=== PATIENT | male | born 1985 | race African-American/Black ===

== ENCOUNTER 2017-12-24 19:13 | Inpatient (IN) | payer OTHER ==
[~2017-12-24] VITALS: Ht 177.8 cm; Wt 89.5 kg
[2017-12-24 20:24] LABS: Basophils # (auto) 0 uL; Basophils % (auto) 0.2 % (0.0-2.0); Eosinophils # (auto) 0.2 uL; Eosinophils % (auto) 2.6 % (0.0-7.0); Hematocrit 40.6 % (41.0-53.0); Hemoglobin 13.2 g/dL (13.5-17.5); Lymphocytes # (auto) 2.9 uL; Lymphocytes % (auto) 47.9 % (10.0-50.0); Mean Corpuscular Hemoglobin 27.6 pg (28.0-32.0); Mean Corpuscular Hgb Conc. 32.4 g/dL (32.0-36.0); Mean Corpuscular Volume 85.2 fL (80.0-100.0); Monocytes # (auto) 0.4 uL; Monocytes % (auto) 6.2 % (0.0-12.0); Neutrophils # (auto) 2.6 uL; Neutrophils % (auto) 43.1 % (37.0-80.0); Nucleated Red Blood Cells % 0.1 %; Platelet Count (auto) 230 10^3/uL (140-450); Red Blood Cells 4.77 10^6/uL (4.5-5.90); Red Cell Distribution Width 15.4 % (11.8-14.3); White Blood Cell 6.1 10^3/uL (4.4-10.8)
[2017-12-24 20:34] LABS: Albumin 4.1 g/dL (3.4-5.0); Bilirubin, Total 0.5 mg/dL (0.2-1.0); Calcium 9.2 mg/dL (8.5-10.1)
[2017-12-24 20:54] LABS: INR 1.07 (0.9-1.15); Partial Thromboplastin Time 36.9 sec (23.78-33.04); Prothrombin Time 11.4 sec (9.27-12.13)
[2017-12-24 22:52] LABS: Urine Bacteria FEW /hpf (None Seen); Urine Blood Negative /uL (Negative); Urine Mucus FEW (None Seen); Urine Specific Gravity 1.023 (1.001-1.035); Urine WBC 4 /hpf (0 - 3)
[2017-12-25] MEDS ORDERED: ENOXAPARIN SOD 80 MG/0.8ML SYRINGE SC ONE (00:30)
[2017-12-25] MEDS ORDERED: MORPHINE SULFATE 8mg/ml INJ SDV IV PRN (04:00)
[2017-12-25] MEDS ORDERED: ONDANSETRON HCL 4 MG/2 ML VIAL IV PRN (04:00)
[2017-12-25] MEDS ORDERED: DIAZEPAM 5 MG TAB PO PRN (04:00)
[2017-12-25] MEDS ORDERED: ACETAMINOPHEN 500 MG TAB PO PRN (04:00)
[2017-12-25] MEDS ORDERED: cefTRIAXone 1GM/10ml IVPUSH 10 ML IV ONE (04:00)
[2017-12-25 05:00] VITALS: BP 141/90
[2017-12-25 05:02] VITALS: BP 141/90
[2017-12-25 05:26] LABS: Basophils # (auto) 0 uL; Basophils % (auto) 0.8 % (0.0-2.0); Eosinophils # (auto) 0.2 uL; Hematocrit 38.3 % (41.0-53.0); Hemoglobin 12.6 g/dL (13.5-17.5); Lymphocytes # (auto) 3.3 uL; Lymphocytes % (auto) 53.8 % (10.0-50.0); Mean Corpuscular Hemoglobin 28.1 pg (28.0-32.0); Mean Corpuscular Hgb Conc. 32.9 g/dL (32.0-36.0); Mean Corpuscular Volume 85.2 fL (80.0-100.0); Monocytes # (auto) 0.5 uL; Monocytes % (auto) 7.4 % (0.0-12.0); Neutrophils # (auto) 2.1 uL; Nucleated Red Blood Cells % 0.1 %; Platelet Count (auto) 214 10^3/uL (140-450); Red Cell Distribution Width 15.3 % (11.8-14.3); White Blood Cell 6.1 10^3/uL (4.4-10.8)
[2017-12-25] MEDS ORDERED: CHOL20007 OR (05:33)
[2017-12-25] MEDS ORDERED: DIAZ10TA3 PO (05:33)
[2017-12-25] MEDS ORDERED: BACL10TA PO (05:33)
[2017-12-25] MEDS ORDERED: TIZA4TAB9 PO (05:33)
[2017-12-25] MEDS ORDERED: RIVA20TA PO (05:33)
[2017-12-25] MEDS ORDERED: OXYB15TA12 PO (05:33)
[2017-12-25 05:46] LABS: Potassium 3.7 mmol/L (3.5-5.1)
[2017-12-25 05:48] LABS: BUN/Creatinine Ratio 17.9
[2017-12-25] MEDS: BACLOFEN 10 MG TAB PO SCH ×3 (06:03→22:21)
[2017-12-25] MEDS: HYDROcodone-ACET 5/325MG TAB PO PRN ×3 (06:04→20:17)
[2017-12-25 09:00] VITALS: BP 148/84
[2017-12-25 13:00] VITALS: BP 128/86
[2017-12-25 17:04] VITALS: BP 131/62
[2017-12-25] MEDS ORDERED: MORPHINE SULFATE 10 MG/ML INJ 1ML SDV IV PRN (17:30)
[2017-12-25] MEDS ORDERED: RIVAROXABAN 20 MG TAB PO SCH (18:00)
[2017-12-25 22:00] VITALS: BP 168/57
[2017-12-25] MEDS: APIXABAN 5 MG TAB PO SCH (22:21)
[2017-12-26 04:49] VITALS: BP 108/56
[2017-12-26 05:29] LABS: Basophils # (auto) 0 uL; Basophils % (auto) 0.8 % (0.0-2.0); Eosinophils # (auto) 0.2 uL; Eosinophils % (auto) 2.7 % (0.0-7.0); Hematocrit 39.8 % (41.0-53.0); Hemoglobin 13.2 g/dL (13.5-17.5); Lymphocytes # (auto) 2.5 uL; Lymphocytes % (auto) 44.2 % (10.0-50.0); Mean Corpuscular Hemoglobin 28.1 pg (28.0-32.0); Mean Corpuscular Hgb Conc. 33.1 g/dL (32.0-36.0); Mean Corpuscular Volume 84.7 fL (80.0-100.0); Monocytes # (auto) 0.4 uL; Monocytes % (auto) 6.6 % (0.0-12.0); Neutrophils # (auto) 2.6 uL; Neutrophils % (auto) 45.7 % (37.0-80.0); Nucleated Red Blood Cells % 0.2 %; Platelet Count (auto) 226 10^3/uL (140-450); Red Blood Cells 4.69 10^6/uL (4.5-5.90); Red Cell Distribution Width 15.2 % (11.8-14.3); White Blood Cell 5.7 10^3/uL (4.4-10.8)
[2017-12-26] MEDS: BACLOFEN 10 MG TAB PO SCH (05:55)
[2017-12-26] MEDS: HYDROcodone-ACET 5/325MG TAB PO PRN (06:00)
[2017-12-26 08:27] VITALS: BP 163/91
[2017-12-26] MEDS: APIXABAN 5 MG TAB PO SCH (11:02)
[2017-12-26 11:57] VITALS: BP 123/77
[2018-01-01] MEDS ORDERED: APIXABAN 5 MG TAB PO SCH (22:00)
== END 2017-12-26 13:40 | disposition home or self-care (01) | DRG 197 ==
LOC: EDBD 19:13 → ER 19:13 → OVERFLOW 19:14 → CENTRAL 12-25 05:29
PROVIDERS: ADMIT Nurse Practitioner; ATTEND Internal Medicine
DX: I82.412 Acute embolism and thrombosis of left femoral vein (principal); G82.20 Paraplegia, unspecified; N39.0 Urinary tract infection, site not specified; Z99.3 Dependence on wheelchair; Z87.828 Personal history of other (healed) physical injury and trauma
CPT/HCPCS: 36415; 80048; 80053; 81001; 85025; 85379; 85610; 85730; 93970; 96372; 96374

== ENCOUNTER 2018-10-10 12:02 | Emergency (ER) | payer OTHER ==
[~2018-10-10] VITALS: Ht 177.8 cm; Wt 86.2 kg
[~2018-10-10 12:02] MED LIST: BACL10TA PO; CHOL20007 OR; DIAZ10TA3 PO; OXYB15TA12 PO; TIZA4TAB9 PO
[2018-10-10 12:21] VITALS: BP 136/88
[2018-10-10] MEDS ORDERED: diphenhdrAMINE HCL 50 MG/1 ML VL IM ONE (13:45)
[2018-10-10] MEDS ORDERED: KETOROLAC TROMETH 60MG/2ML VIAL IM ONE (13:45)
== END 2018-10-10 14:04 | disposition home or self-care (01) ==
LOC: EDBD 12:02 → ER 12:09
DX: M79.10 Myalgia, unspecified site (principal); G89.29 Other chronic pain; F41.9 Anxiety disorder, unspecified; Z76.0 Encounter for issue of repeat prescription
CPT/HCPCS: 96372; 99283; J1200; J1885

== ENCOUNTER 2019-02-16 23:02 | Inpatient (IN) | payer OTHER ==
[~2019-02-16] VITALS: Ht 177.8 cm; Wt 92.5 kg
[2019-02-17 00:37] LABS: Basophils # (auto) 0 uL; Basophils % (auto) 0.7 % (0.0-2.0); Eosinophils # (auto) 0.2 uL; Eosinophils % (auto) 2.6 % (0.0-7.0); Hematocrit 40.3 % (41.0-53.0); Hemoglobin 13.1 g/dL (13.5-17.5); Lymphocytes # (auto) 3.2 uL; Lymphocytes % (auto) 46.4 % (10.0-50.0); Mean Corpuscular Hemoglobin 27.8 pg (28.0-32.0); Mean Corpuscular Hgb Conc. 32.6 g/dL (32.0-36.0); Mean Corpuscular Volume 85.5 fL (80.0-100.0); Monocytes # (auto) 0.4 uL; Monocytes % (auto) 5.9 % (0.0-12.0); Neutrophils % (auto) 44.4 % (37.0-80.0); Nucleated Red Blood Cells % 0.1 %; Platelet Count (auto) 286 10^3/uL (140-450); Red Blood Cells 4.71 10^6/uL (4.5-5.90); Red Cell Distribution Width 15.2 % (11.8-14.3); White Blood Cell 6.8 10^3/uL (4.4-10.8)
[2019-02-17 00:53] LABS: INR 0.97 (0.9-1.15); Partial Thromboplastin Time 31.2 sec (23.64-32.05)
[2019-02-17 00:55] LABS: Albumin 3.8 g/dL (3.4-5.0); BUN/Creatinine Ratio 17.2; Potassium 3.7 mmol/L (3.5-5.1)
[2019-02-17 01:05] LABS: Bilirubin, Total 0.4 mg/dL (0.2-1.0); Total Protein 7.5 g/dL (6.4-8.2)
[2019-02-17 06:29] LABS: Alcohol, Urine < 3.0 mg/dL (0-5); Amphetamine Screen, Urine NEGATIVE (NEGATIVE); Barbiturate Scree,Urine NEGATIVE (NEGATIVE); Benzodiazephine Screen, Urine POSITIVE (NEGATIVE); Cannabinoid Screen, Urine POSITIVE (NEGATIVE); Cocaine Screen, Urine NEGATIVE (NEGATIVE); Opiate Scree,Urine NEGATIVE (NEGATIVE); Phencyclidine Screen, Urine NEGATIVE (NEGATIVE)
[2019-02-17] MEDS ORDERED: DIAZEPAM 5 MG TAB PO PRN (06:30)
[2019-02-17] MEDS ORDERED: ACETAMINOPHEN 500 MG TAB PO PRN (06:30)
[2019-02-17] MEDS ORDERED: ONDANSETRON HCL 4 MG/2 ML VIAL IV PRN (06:30)
[2019-02-17 07:24] LABS: Urine Bacteria MOD /hpf (None Seen); Urine Blood Negative /uL (Negative); Urine Specific Gravity 1.013 (1.001-1.035); Urine WBC 26 /hpf (0 - 3)
[2019-02-17] MEDS: CLINDAMYCIN 600MG IV 50 ML IV SCH ×2 (07:39→16:24)
[2019-02-17] MEDS: HYDROcodone-ACET 5/325MG TAB PO PRN (07:42)
[2019-02-17 09:34] VITALS: BP 116/66
[2019-02-17 09:47] VITALS: BP 116/66
[2019-02-17] MEDS: OXYBUTYNIN CHL 5 MG TAB PO SCH ×2 (10:40→22:08)
[2019-02-17] MEDS: cefTRIAXone 1GM/50ML D5W 50 ML IV SCH (10:40)
[2019-02-17] MEDS: FAMOTIDINE 20 MG TAB PO SCH (10:40)
[2019-02-17] MEDS ORDERED: RIV20T PO (11:07)
[2019-02-17 12:39] VITALS: BP 142/63
[2019-02-17] MEDS: BACLOFEN 10 MG TAB PO SCH ×3 (12:45→22:08)
[2019-02-17 16:34] VITALS: BP 147/81
[2019-02-17] MEDS: RIVAROXABAN 20 MG TAB PO SCH (18:08)
--- NOTE | 2019-02-17 19:40 | NUR ---
Opening Shift Note Assumed care of patient, awake and alert. No S/S of distress/SOB or pain. Instructed on POC and to call for assist PRN, will continue to monitor for changes Q1hr and PRN. Patient wheelchair bound, able to transfer by himself from bed to wheelchair.
[2019-02-17 22:00] VITALS: BP 134/91
[2019-02-18] MEDS: CLINDAMYCIN 600MG IV 50 ML IV SCH ×3 (00:28→15:51)
[2019-02-18 05:00] VITALS: BP 137/94
[2019-02-18] MEDS: BACLOFEN 10 MG TAB PO SCH ×4 (06:45→22:09)
--- NOTE | 2019-02-18 07:06 | NUR ---
Patient's telemetry reading whenever he is sleeping/resting is sinus bradycardia on the 40's, high 30's. Patient is asymptomatic. Report given to oncoming RN.
[2019-02-18 08:00] VITALS: BP 115/48
[2019-02-18] MEDS: cefTRIAXone 1GM/50ML D5W 50 ML IV SCH (08:20)
[2019-02-18 08:26] VITALS: BP 115/48
[2019-02-18] MEDS: OXYBUTYNIN CHL 5 MG TAB PO SCH ×2 (10:03→22:08)
[2019-02-18] MEDS: FAMOTIDINE 20 MG TAB PO SCH (10:03)
[2019-02-18 10:17] LABS: BUN/Creatinine Ratio 15.9; Calcium 9.1 mg/dL (8.5-10.1)
[2019-02-18 10:46] LABS: Basophils # (auto) 0.1 uL; Basophils % (auto) 1.1 % (0.0-2.0); Eosinophils # (auto) 0.1 uL; Eosinophils % (auto) 1.9 % (0.0-7.0); Hematocrit 42.9 % (41.0-53.0); Hemoglobin 13.8 g/dL (13.5-17.5); Lymphocytes # (auto) 2.5 uL; Lymphocytes % (auto) 45.8 % (10.0-50.0); Mean Corpuscular Hemoglobin 27.7 pg (28.0-32.0); Mean Corpuscular Hgb Conc. 32.2 g/dL (32.0-36.0); Monocytes # (auto) 0.3 uL; Monocytes % (auto) 6.3 % (0.0-12.0); Neutrophils # (auto) 2.4 uL; Neutrophils % (auto) 44.9 % (37.0-80.0); Platelet Count (auto) 294 10^3/uL (140-450); Red Blood Cells 4.98 10^6/uL (4.5-5.90); Red Cell Distribution Width 15.6 % (11.8-14.3); White Blood Cell 5.4 10^3/uL (4.4-10.8)
[2019-02-18 12:36] VITALS: BP 111/70
[2019-02-18 16:44] VITALS: BP 115/77
[2019-02-18] MEDS: RIVAROXABAN 20 MG TAB PO SCH (18:26)
--- NOTE | 2019-02-18 20:13 | NUR ---
Patient requesting to take a shower. Patient on telemetry. Per protocol, patient on telemetry can take a shower if there is an okay to take a shower from the doctor. Also, Dr. Leavitt is paged to inform him of patient's telemetry reading of sinus bradycardia, going down to as low as 30's. Doctor Leavitt paged, call back received, updated with patient's status. Received orders for okay to take a shower. Also, Dr. Leavitt aware of patient's marked sinus bradycardia, as low as 30's, no new order given. Care continued.
[2019-02-18] MEDS: HYDROcodone-ACET 5/325MG TAB PO PRN (21:08)
[2019-02-18 21:30] VITALS: BP 136/68
[2019-02-19] MEDS: CLINDAMYCIN 600MG IV 50 ML IV SCH ×3 (00:10→16:19)
[2019-02-19 05:00] VITALS: BP 112/69
[2019-02-19] MEDS: BACLOFEN 10 MG TAB PO SCH ×4 (06:36→21:51)
[2019-02-19 08:00] VITALS: BP 132/73
[2019-02-19 08:19] VITALS: BP 132/73
[2019-02-19] MEDS: cefTRIAXone 1GM/50ML D5W 50 ML IV SCH (08:33)
[2019-02-19] MEDS: OXYBUTYNIN CHL 5 MG TAB PO SCH ×2 (09:44→21:50)
[2019-02-19] MEDS: FAMOTIDINE 20 MG TAB PO SCH (09:44)
--- NOTE | 2019-02-19 12:00 | NUR ---
INFORMED BY DR. WILSON TO DISCHARGE PATIENT IF THE SECOND PART OF THE BONE SCAN COMES BACK NEGATIVE. WAITING FOR RESULTS TO BE RESULTED
[2019-02-19 12:33] VITALS: BP 150/79
[2019-02-19 16:49] VITALS: BP 109/89
[2019-02-19] MEDS: RIVAROXABAN 20 MG TAB PO SCH (17:44)
--- NOTE | 2019-02-19 18:40 | NUR ---
second part of bone scan has not been resulted at this time. waiting for negative results to be able to discharge patient as per dr. Leavitt
[2019-02-19 21:30] VITALS: BP 105/72
[2019-02-20] MEDS: CLINDAMYCIN 600MG IV 50 ML IV SCH (00:19)
[2019-02-20 05:00] VITALS: BP 102/56
[2019-02-20] MEDS: BACLOFEN 10 MG TAB PO SCH (06:08)
--- NOTE | 2019-02-20 07:50 | NUR ---
Opening Shift Note Assumed care of patient, awake and alert. TRADE SHOW SPECIALIST at bedside to obtain V.S. No S/S of distress/SOB or pain. Instructed on POC and to call for assist PRN, will continue to monitor for changes Q1hr and PRN.
[2019-02-20 08:00] VITALS: BP 113/71
--- NOTE | 2019-02-20 08:46 | NUR ---
ROUNDING Patient cleared for discharge at this time. New prescriptions given to patient with instructions.
--- NOTE | 2019-02-20 10:09 | NUR ---
[employer] RECEIVED TAXI VOUCHER, CALLED FOR PICK-UP, [employer] STATES THEY CAN ACCOMMODATE WHEEL CHAIR AND WILL COME IN 20-30 MINS.
--- NOTE | 2019-02-20 10:19 | NUR ---
TRANSPORTATION HOME Patient states he does not need taxi voucher that some one will pick him up in approx 10 mins.
--- NOTE | 2019-02-20 10:22 | NUR ---
PATIENT DISCHARGE PATIENT LEFT UNIT VIA WHEELCHAIR. Signed: 02/20/19 at 1117 by SANDEE MCMAHON <Co-Signature Required> Co-Signed: 02/20/19 at 1117 by Bushra Burden RN RN
--- NOTE | 2019-02-20 10:47 | NUR ---
Discharge instructions given as ordered. Encourage to follow up with PMD as instructed. All questions and concerns addressed. Patient verbalized understanding. Medication reconciliation form completed and copy given to patient. IV removed by heat and frost insulator helper Maria A, with catheter intact, pressure dressing applied. Telemetry unit returned to ICU. Patient taken to vehicle via wheelchair with all personal belongings, accompanied by staff and family member. No distress noted at time of departure.
== END 2019-02-20 10:25 | disposition home or self-care (01) | DRG 383 ==
LOC: EDBD 23:02 → ER 23:15 → TELE 23:16 → TELE-WESTW 02-17 09:23
PROVIDERS: ADMIT Nurse Practitioner Family; ATTEND Internal Medicine
DX: L03.116 Cellulitis of left lower limb (principal); I82.412 Acute embolism and thrombosis of left femoral vein; G82.20 Paraplegia, unspecified; N39.0 Urinary tract infection, site not specified; I10 Essential (primary) hypertension; D64.9 Anemia, unspecified; Z79.01 Long term (current) use of anticoagulants; Z82.49 Family history of ischemic heart disease and other diseases of the circulatory system; Z79.899 Other long term (current) drug therapy
CPT/HCPCS: 36415; 71045; 73630; 74018; 78315; 80048; 80053; 80307; 81001; 85025; 85610; 85730; 87086; 93971; 96365; G0378; J0696; J3490

== ENCOUNTER 2021-01-17 11:28 | Emergency (ER) | payer MEDICAID, OTHER ==
[~2021-01-17] VITALS: Ht 152.4 cm; Wt 90.7 kg
[~2021-01-17 11:28] MED LIST changes: +RIV20T PO
[2021-01-17] MEDS ORDERED: LIDOCAINE 1% HCL (LOCAL ANESTH.) INJ 20ML MDV ONE (11:59)
[2021-01-17] MEDS ORDERED: SODIUM CHLORIDE 0.9% 1,000 ML IV ONE (12:00)
[2021-01-17] MEDS ORDERED: LIDOCAINE 1% (LOCAL ANESTH.) PF 5ml SDV ID ONE (12:00)
[2021-01-17 12:08] LABS: Basophils # (auto) 0.1 10 ^3/uL (0-0.2); Basophils % (auto) 1.1 % (0.0-2.0); Eosinophils # (auto) 0.1 10 ^3/uL (0-0.8); Eosinophils % (auto) 1.8 % (0.0-7.0); Hematocrit 37.9 % (41.0-53.0); Hemoglobin 12.6 g/dL (13.5-17.5); Lymphocytes # (auto) 2.2 10 ^3/uL (0.4-5.4); Lymphocytes % (auto) 47.6 % (10.0-50.0); Mean Corpuscular Hemoglobin 28.4 pg (28.0-32.0); Mean Corpuscular Hgb Conc. 33.2 g/dL (32.0-36.0); Mean Corpuscular Volume 85.3 fL (80.0-100.0); Monocytes # (auto) 0.3 10 ^3/uL (0-1.3); Monocytes % (auto) 5.8 % (0.0-12.0); Neutrophils % (auto) 43.7 % (37.0-80.0); Nucleated Red Blood Cells % 0.1 %; Red Blood Cells 4.45 10^6/uL (4.5-5.90); Red Cell Distribution Width 15.7 % (11.8-14.3); White Blood Cell 4.6 10^3/uL (4.4-10.8)
[2021-01-17 12:21] LABS: Albumin 3.5 g/dL (3.4-5.0); Calcium 8.8 mg/dL (8.5-10.1); Potassium 3.8 mmol/L (3.5-5.1)
[2021-01-17 12:24] LABS: Bilirubin, Total 0.4 mg/dL (0.2-1.0); Total Protein 7.4 g/dL (6.4-8.2)
[2021-01-17] MEDS ORDERED: TETANUS-DIPTH-ACEL PERTUSSIS 0.5ML SYR Tdap IM ONE (12:45)
[2021-01-17 14:54] LABS: Platelet Count (auto) 249 10^3/uL (140-450)
[2021-01-17 15:07] VITALS: BP 125/83
== END 2021-01-17 15:25 | disposition home or self-care (01) ==
LOC: ER 11:28
DX: S01.511A Laceration without foreign body of lip, initial encounter (principal); S01.81XA Laceration without foreign body of other part of head, initial encounter; Z79.899 Other long term (current) drug therapy; Y04.2XXA Assault by strike against or bumped into by another person, initial encounter; Y93.89 Activity, other specified; Y92.89 Other specified places as the place of occurrence of the external cause; Y99.8 Other external cause status
CPT/HCPCS: 12015; 36415; 70486; 80053; 85025; 90471; 90715; 96360; 96361; 99285; J2001; J7030

== ENCOUNTER 2024-01-06 20:16 | Emergency (ER) | payer MEDICAID ==
[~2024-01-06] VITALS: Ht 175.3 cm; Wt 90.9 kg
[2024-01-06 22:43] VITALS: BP 110/73; PULSE 72; RESP 14; TEMP 99.3; O2SAT 100
[2024-01-06] MEDS ORDERED: PRED20TA2 PO (23:36)
[2024-01-06] MEDS ORDERED: AMOX875T4 PO (23:36)
[2024-01-06] MEDS ORDERED: IBUP-1456 PO (23:36)
[2024-01-06] MEDS: DexAMETHasone SOD PHOS 10MG/1ML VIAL INJ IM ONE (23:41)
[2024-01-06] MEDS: KETOROLAC TROMETH 60MG/2ML VIAL IM ONE (23:44)
[2024-01-06] MEDS: cefTRIAXone SOD 1,000 MG VL IM ONE (23:44)
== END 2024-01-06 23:55 | disposition home or self-care (01) ==
LOC: ER 20:16
DX: J03.90 Acute tonsillitis, unspecified (principal); F12.10 Cannabis abuse, uncomplicated
CPT/HCPCS: 96372; 99284; J0696; J1100; J1885